=== PATIENT | female | born 1970 | race American Indian/Alaskan Native ===

== ENCOUNTER 2017-07-28 09:51 | Emergency (ER) | payer SELFPAY ==
[2017-07-28] MEDS ORDERED: TYLENOL PO ONE (10:36)
[2017-07-28] MEDS ORDERED: TYLENOL ONE (10:38)
[2017-07-28 11:07] LABS: Basophils % (Auto) 0.8 % (0.0-1.8); Eosinophils % (Auto) 0.1 % (0.0-4.3); Hematocrit 43.8 % (30.3-42.9); Hemoglobin 15.1 gm/dl (10.1-14.3); Lymphocytes % (Auto) 22.3 % (13.4-35.0); Mean Corpuscular HGB Conc 35 % (30-34); Mean Corpuscular Hemoglobin 31 pg (28-32); Mean Corpuscular Volume 90 fl (79-97); Monocytes # (Auto) 0.5 K/mm3 (0.0-0.8); Monocytes % (Auto) 12.7 % (0.0-7.3); Platelet Count 155 K/mm3 (140-440); Red Blood Count 4.88 M/mm3 (3.65-5.03); Red Cell Distribution Width 14.6 % (13.2-15.2)
--- NOTE | 2017-07-28 11:17 | XRay Report ---
ROUTINE CHEST, TWO VIEWS: SOB. PA and lateral views demonstrate the heart and mediastinal contour to be of normal size and shape. The lungs are clear but hypo-expanded and the soft tissues and bony structures are normal. IMPRESSION: Normal limited study.
[2017-07-28 11:23] LABS: BUN/Creatinine Ratio 9; Blood Urea Nitrogen 6 mg/dL (7-17); Calcium 8.7 mg/dL (8.4-10.2); Hemolysis Index 73
[2017-07-28] MEDS ORDERED: NACL 0.9% 1000 ML 1,000 ML IV ONE (13:29)
[2017-07-28] MEDS ORDERED: GLUCOPHAGE PO ONE (14:17)
[2017-07-28] MEDS ORDERED: MOTRIN PO ONE (14:26)
--- NOTE | 2017-07-28 14:38 | Emergency Department Report ---
- General Chief Complaint: Upper Respiratory Infection Stated Complaint: CP/EAR/ABD PAIN Time Seen by Provider: 07/28/17 13:22 Source: patient Mode of arrival: Ambulatory Limitations: No Limitations - History of Present Illness Initial Comments: This is a 46-year-old female nontoxic, well nourished in appearance, no acute signs of distress presents to the ED with c/o of chest pain, productive cough, nasal congestion, body aches, rhinnorrhea, bilateral earache during cough episode, and fever, chills x2 days. Patient describes chest pain only during coughing episode. Patient stated had abdominal pain but has subsided. Patient stated the abdominal pain only occurred during coughing episode. Patient denies radiation of chest pain. Patient denies any recent travels, long car rides, recent hospital stays. Denies any calf pain or calf tenderness. Denies any hemoptysis, chills, headache, stiff neck, nausea, vomiting, shortness of breath , difficulty breathing, wheezing, back pain, abdominal pain, numbness or tingling. Patient denies any allergies. Past medical history includes diabetes. Patient has not filled her prescription for metformin and she takes 500 mg twice a day and has not taken her dose today. MD Complaint: fever, cough, rhinorrhea, nasal congestion, other (chest pain) -: days(s) (2) Severity: mild Severity scale (0 -10): 8 Quality: aching Consistency: constant Improves With: nothing Worsens With: nothing Associated Symptoms: fever, chills, rhinorrhea, nasal congestion, cough, chest pain. denies: myalgias, diaphoresis, headache, sore throat, stiff neck, shortness of breath, abdominal pain, nausea, vomiting, diarrhea, dysuria, rash, confusion, right sweats, weight loss, epistaxis, hoarseness, ear pain Treatments Prior to Arrival: none - Related Data Previous Rx's Medication Instructions Recorded Last Taken Type Azithromycin [Zithromax Z-LIAM] 250 mg PO DAILY #6 tablet 07/28/17 Unknown Rx Benzonatate [Tessalon Perle] 100 mg PO Q6H PRN #30 capsule 07/28/17 Unknown Rx Ibuprofen [Motrin] 600 mg PO Q8H PRN #30 tablet 07/28/17 Unknown Rx metFORMIN [Glucophage] 500 mg PO BID #60 tablet 07/28/17 Unknown Rx Allergies Allergy/AdvReac Type Severity Reaction Status Date / Time codeine Allergy Shortness Verified 07/28/17 10:29 of Breath orange Allergy Hives Verified 07/28/17 10:29 ED Review of Systems ROS: Stated complaint: CP/EAR/ABD PAIN Other details as noted in HPI Constitutional: chills, fever Eyes: denies: eye pain, eye discharge, vision change ENT: ear pain. denies: throat pain Respiratory: cough. denies: shortness of breath, wheezing Cardiovascular: chest pain. denies: palpitations Endocrine: no symptoms reported Gastrointestinal: denies: abdominal pain, nausea, diarrhea Genitourinary: denies: urgency, dysuria, discharge Musculoskeletal: denies: back pain, joint swelling, arthralgia Skin: denies: rash, lesions Neurological: denies: headache, weakness, paresthesias Psychiatric: denies: anxiety, depression Hematological/Lymphatic: denies: easy bleeding, easy bruising ED Past Medical Hx - Past Medical History Previous Medical History?: Yes Hx Diabetes: Yes - Surgical History Past Surgical History?: Yes Additional Surgical History: Tubaligation - Social History Smoking Status: Current Every Day Smoker Substance Use Type: Alcohol, Marijuana, Prescribed - Medications Home Medications: Home Medications Medication Instructions Recorded Confirmed Last Taken Type Azithromycin [Zithromax Z-LIAM] 250 mg PO DAILY #6 tablet 07/28/17 Unknown Rx Benzonatate [Tessalon Perle] 100 mg PO Q6H PRN #30 capsule 07/28/17 Unknown Rx Ibuprofen [Motrin] 600 mg PO Q8H PRN #30 tablet 07/28/17 Unknown Rx metFORMIN [Glucophage] 500 mg PO BID #60 tablet 07/28/17 Unknown Rx ED Physical Exam - General Limitations: No Limitations General appearance: alert, in no apparent distress - Head Head exam: Present: atraumatic, normocephalic, normal inspection - Eye Eye exam: Present: normal appearance, PERRL, EOMI. Absent: scleral icterus, conjunctival injection, nystagmus, periorbital swelling, periorbital tenderness Pupils: Present: normal accommodation - ENT ENT exam: Present: normal exam, mucous membranes moist, normal external ear exam - Expanded ENT Exam Expanded Ear exam: Present: normal external inspection TM/Canal exam: Erythema: Left TM, Right TM Mouth exam: Present: normal external inspection, tongue normal. Absent: drooling, trismus, muffled voice, tongue elevation, laceration Teeth exam: Present: normal inspection. Absent: dental caries, fractured tooth #, dental tenderness #, gingival enlargement Throat exam: Positive: tonsillar erythema. Negative: tonsillomegaly, tonsillar exudate, R peritonsillar mass, L peritonsillar mass - Neck Neck exam: Present: normal inspection, full ROM. Absent: tenderness, meningismus, lymphadenopathy, thyromegaly - Respiratory Respiratory exam: Present: normal lung sounds bilaterally, chest wall tenderness (midsternum). Absent: respiratory distress, wheezes, rales, rhonchi , stridor, accessory muscle use, decreased breath sounds, prolonged expiratory - Cardiovascular Cardiovascular Exam: Present: regular rate, normal rhythm, normal heart sounds. Absent: irregular rhythm, systolic murmur, diastolic murmur, rubs, gallop - GI/Abdominal GI/Abdominal exam: Present: soft, normal bowel sounds. Absent: distended, tenderness, guarding, rebound, rigid, diminished bowel sounds - Rectal Rectal exam: Present: deferred - Extremities Exam Extremities exam: Present: normal inspection, full ROM, normal capillary refill. Absent: tenderness, pedal edema, joint swelling, calf tenderness - Back Exam Back exam: Present: normal inspection, full ROM. Absent: tenderness, CVA tenderness (R), CVA tenderness (L), muscle spasm, paraspinal tenderness, vertebral tenderness, rash noted - Neurological Exam Neurological exam: Present: alert, oriented X3, CN II-XII intact, normal gait, reflexes normal - Psychiatric Psychiatric exam: Present: normal affect, normal mood - Skin Skin exam: Present: warm, dry, intact, normal color. Absent: rash ED Course Vital Signs 07/28/17 07/28/17 10:30 17:04 Temperature 102.2 F H 99.6 F Pulse Rate 129 H 107 H Respiratory 22 18 Rate Blood Pressure 141/81 Blood Pressure 112/75 [Left] O2 Sat by Pulse 95 97 Oximetry - Reevaluation(s) Reevaluation #1: 07/28/17 14:50 Patient is speaking in full sentences with no signs of distress noted. ED Medical Decision Making - Lab Data Result diagrams: 07/28/17 10:50 07/28/17 10:50 - EKG Data When compared to previous EKG there are: no significant change Interpretation: normal EKG, other (sinus tachy) 07/28/17 14:52 Normal sinus tachy with no ST abnormality. No T wave inversion or peak. - Radiology Data Radiology results: report reviewed interpreted by me: Radiologist normal exam - Medical Decision Making This is a 46-year-old female that presents with upper resp infectin. Patient is stable and was examined by me. Chest x-ray has been obtained and the radiologist with normal exam. Negative influenza swab. Labs obtained within normal limits. Patient has not filled her prescription for metformin and she takes 500 mg twice a day so patient received a dose of metformin and patient be discharged with a prescription. Patient Vital signs stable before discharge. Patient afebrile. Patient is treated empirically with azithromycin due to symptoms are worsening as per patient. He also received Tessalon Perle in the ED as well as discharge. Patient was instructed Follow-up with a primary care doctor in 3-5 days or if symptoms worsen and continue return to emergency room as soon as possible. At time time of discharge, the patient does not seem toxic or ill in appearance. No acute signs of distress noted. Patient agrees to discharge treatment plan of care. No further questions noted by the patient. This chart is dictated with using [employer] Critical care attestation.: If time is entered above; I have spent that time in minutes in the direct care of this critically ill patient, excluding procedure time. ED Disposition Clinical Impression: Upper respiratory infection Qualifiers: URI type: unspecified URI Qualified Code(s): J06.9 - Acute upper respiratory infection, unspecified Diabetes Qualifiers: Diabetes mellitus type: other specified (including JUSTIN) Diabetes mellitus complication status: with unspecified complications Diabetes mellitus jail insulin use: unspecified intermediate teacher insulin use status Qualified Code(s): E13.8 - Other specified diabetes mellitus with unspecified complications Disposition: DC-01 TO HOME OR SELFCARE Is pt being admited?: No Does the pt Need Aspirin: No Condition: Stable Instructions: Upper Respiratory Infection (ED), Azithromycin (By mouth), Benzonatate (By mouth), Ibuprofen (By mouth), Fever in Adults (ED), Diabetes Mellitus Type 2 in Adults (ED) Additional Instructions: Follow-up with a primary care doctor in 3-5 days or if symptoms worsen and continue return to emergency room as soon as possible. Increase hydration and take Motrin for fever episode as prescribed. Prescriptions: Azithromycin [Zithromax Z-LIAM] 250 mg PO DAILY #6 tablet Benzonatate [Tessalon Perle] 100 mg PO Q6H PRN #30 capsule PRN Reason: Cough Ibuprofen [Motrin] 600 mg PO Q8H PRN #30 tablet PRN Reason: Fever metFORMIN [Glucophage] 500 mg PO BID #60 tablet Referrals: SCOTT JERNIGAN MD [Primary Care Provider] - 3-5 Days Forms: Work/School Release Form(ED)
[2017-07-28 14:48] LABS: Lipase 17 units/L (13-60)
[2017-07-28 14:59] LABS: HCG Qualitative,Urine Negative (Negative)
[2017-07-28 15:05] LABS: Bacteria,Urine 1+ /HPF (Negative); Bilirubin,Urine NEG (Negative); Blood,Urine MOD (Negative); Color,Urine Yellow (Yellow); Mucus,Urine FEW /HPF; Nitrite,Urine NEG (Negative); Urobilinogen,Urine < 2.0 mg/dL (<2.0)
[2017-07-28] MEDS ORDERED: TESSALON PERLES PO ONE (16:55)
[2017-07-28 17:07] VITALS: BP 112/75
== END 2017-07-28 17:52 | disposition home or self-care (01) ==
LOC: ED 09:51
DX: J06.9 Acute upper respiratory infection, unspecified (principal); E11.9 Type 2 diabetes mellitus without complications; F17.200 Nicotine dependence, unspecified, uncomplicated; F12.10 Cannabis abuse, uncomplicated; Z88.6 Allergy status to analgesic agent; Z91.018 Allergy to other foods
CPT/HCPCS: 36415; 71046; 80048; 81001; 81025; 82010; 82140; 82150; 82962; 83690; 84484; 84703; 85025; 87040; 87086; 87400; 93005; 93010; 96360; 99284; J7030

== ENCOUNTER 2017-08-10 22:05 | Emergency (ER) | payer OTHER ==
[2017-08-10 22:11] VITALS: BP 138/82
[2017-08-10 23:26] LABS: Basophils % (Auto) 0.5 % (0.0-1.8); Eosinophils # (Auto) 0.1 K/mm3 (0.0-0.4); Eosinophils % (Auto) 0.9 % (0.0-4.3); Hematocrit 40.6 % (30.3-42.9); Hemoglobin 13.3 gm/dl (10.1-14.3); Lymphocytes % (Auto) 51.5 % (13.4-35.0); Mean Corpuscular HGB Conc 33 % (30-34); Mean Corpuscular Hemoglobin 29 pg (28-32); Mean Corpuscular Volume 89 fl (79-97); Monocytes # (Auto) 0.5 K/mm3 (0.0-0.8); Monocytes % (Auto) 7.9 % (0.0-7.3); Platelet Count 277 K/mm3 (140-440); Red Blood Count 4.58 M/mm3 (3.65-5.03); Red Cell Distribution Width 14.7 % (13.2-15.2)
[2017-08-10 23:44] LABS: BUN/Creatinine Ratio 11; Blood Urea Nitrogen 9 mg/dL (7-17); Calcium 8.5 mg/dL (8.4-10.2); Hemolysis Index 26
[2017-08-11] MEDS ORDERED: TORADOL IM ONE (06:10)
[2017-08-11] MEDS ORDERED: FLEXERIL PO ONE (06:10)
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
--- NOTE | 2017-08-11 06:48 | XRay Report ---
FINAL REPORT EXAM: XR RIBS BILAT 3V HISTORY: chest pain TECHNIQUE: Six views of the ribs were obtained. FINDINGS: There is no evidence of acute rib fracture bilaterally. The lungs are clear. The heart size is normal. Pleural fluid is not seen. The surrounding skeletal structures otherwise reveal disc degeneration in the thoracic spine IMPRESSION: No evidence of acute rib fracture. No acute process in the chest.
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
== END 2017-08-11 07:26 | disposition home or self-care (01) ==
LOC: ED 22:05
DX: R07.9 Chest pain, unspecified (principal); M79.1 Myalgia; E11.9 Type 2 diabetes mellitus without complications; F17.200 Nicotine dependence, unspecified, uncomplicated; V43.52XA Car driver injured in collision with other type car in traffic accident, initial encounter; Y93.89 Activity, other specified; Y92.89 Other specified places as the place of occurrence of the external cause; Y99.8 Other external cause status; Z88.5 Allergy status to narcotic agent; Z91.018 Allergy to other foods
CPT/HCPCS: 36415; 71110; 80048; 84484; 85025; 93005; 93010; 96372; 99284; J1885